=== PATIENT | female | born 1985 | race Caucasian/White ===

== ENCOUNTER → 2017-10-29 15:58 | Outpatient (CLI) | payer BC ==
[2017-10-29 17:40] LABS: CREATININE - SERUM 0.5 mg/dL (0.6-1.3); URIC ACID 3.3 mg/dL (2.6-7.2)
[2017-10-29 17:57] LABS: BASOPHILS 0.2 % (0-2); EOSINOPHILS 4.4 % (0-7); HEMATOCRIT 42.6 % (36.0-48.0); HEMOGLOBIN 14.9 g/dL (12-16); IMMATURE GRANULOCYTES 0.2 % (0-5); LYMPHOCYTES 32.8 % (15-50); MCV 94.5 fL (80.0-100.0); MEAN PLATELET VOLUME 10.8 fL (7.4-10.4); MONOCYTES 7.3 % (2-11); NEUTROPHILS 55.1 % (40-80); PLATELET COUNT 256 10x3/uL (130-400); RBC 4.51 10x6/uL (4.00-5.40); RDW 14.1 % (11.5-14.5); WBC 9.6 10x3/uL (4.8-10.8)
[2017-10-31 09:09] LABS: RAPID PLASMA REAGIN Non Reactive (Non Reactive)
[2017-10-31 10:19] LABS: ANA REFLEX - DIRECT Negative (Negative)
[2017-11-01 04:15] LABS: ANGIOTENSIN CONVERTING ENZYME 40 U/L (14-82)
[2017-11-01 11:21] LABS: LYSOZYME 5.9 ug/mL (2.5-12.9)
[2017-11-01 16:15] LABS: ANCA - ANTIMYELOPEROXIDASE <9.0 U/mL (0.0-9.0); ANCA - ANTIPROTEINASE 3 <3.5 U/mL (0.0-3.5); ANCA - ATYPICAL <1:20 titer (Neg:<1:20); ANCA - CYTOPLASMIC <1:20 titer (Neg:<1:20); ANCA - PERINUCLEAR <1:20 titer (Neg:<1:20)
[2017-11-05 14:28] LABS: HLA B27 Negative (())
== END | disposition home or self-care (01) ==
LOC: D.LAB 15:58
DX: H16.329 Diffuse interstitial keratitis, unspecified eye (principal)

== ENCOUNTER → 2018-08-08 08:28 | Outpatient (CLI) | payer BC | END | disposition home or self-care (01) | LOC: D.RAD 08:28 | DX: R13.10 Dysphagia, unspecified (principal); K21.9 Gastro-esophageal reflux disease without esophagitis ==

== ENCOUNTER 2019-11-24 08:36 | Emergency (ER) | payer OTHER ==
[~2019-11-24] VITALS: Ht 170.2 cm; Wt 94.5 kg
[2019-11-24 08:37] VITALS: Ht 170.2 cm; Wt 94.5 kg
[2019-11-24] MEDS ORDERED: TREXALL10 MG PO (08:39)
[2019-11-24] MEDS ORDERED: FOLIC ACID1 MG PO (08:39)
[2019-11-24] MEDS ORDERED: MELATONIN10 M1 PO (08:40)
[2019-11-24] MEDS ORDERED: K-TAB10 MEQ PO (08:40)
[2019-11-24] MEDS ORDERED: BENADRYL25 MG PO (08:40)
[2019-11-24] MEDS ORDERED: BUSPAR 15 MG TA15 MG PO (08:41)
[2019-11-24 10:26] VITALS: BP 126/72
== END 2019-11-24 10:30 | disposition home or self-care (01) ==
LOC: D.ER 08:36
DX: M54.2 Cervicalgia (principal); M25.559 Pain in unspecified hip; R51 Headache; V89.2XXA Person injured in unspecified motor-vehicle accident, traffic, initial encounter; Y93.9 Activity, unspecified; Y92.9 Unspecified place or not applicable